=== PATIENT | female | born 1955 | race African-American/Black ===

== ENCOUNTER → 2016-06-11 | Outpatient (CLI) | payer MEDICARE, OTHER ==
[2016-01-03 18:36] VITALS: BP 111/74
[~2016-06-11] MED LIST: ACET500T68 PO; AMLO5TAB2 PO; DICL1PAT4 TP; METF500T4 PO; PENTAZOCINE; aspirin PO; benicar PO; gabapentin PO; lidoderm patch; metoprolol; simvastatin PO; talwin; tizanidine PO
[2016-06-11 15:38] LABS: BASO # 0.1 x10^3/uL (0.0-0.2); BASO % 1 % (0-3); EOS % 3 % (0-3); HEMATOCRIT 41.1 % (36.0-47.0); HEMOGLOBIN 13.8 g/dL (12.0-15.5); LYMPH # 3.1 x10^3/uL (1.0-4.8); LYMPH % 40 % (24-48); MEAN CORPUSCULAR HEMOGLOBIN 30 pg (25-35); MEAN CORPUSCULAR HGB CONC 33 g/dL (31-37); MEAN CORPUSCULAR VOLUME 90 fL (79-100); MONO % 7 % (0-9); NEUT % 50 % (31-73); PLATELET COUNT 225 x10^3/uL (140-400); RED BLOOD COUNT 4.59 x10^6/uL (3.50-5.40); RED CELL DISTRIBUTION WIDTH 14.2 % (11.5-14.5); WHITE BLOOD COUNT 7.8 x10^3/uL (4.0-11.0)
[2016-06-11 15:52] LABS: ALBUMIN 3.9 g/dL (3.4-5.0); ALBUMIN/GLOBULIN RATIO 1.1 (1.0-1.7); CALCIUM 9.3 mg/dL (8.5-10.1); CREATININE 0.8 mg/dL (0.6-1.0); GFR 88.5; POTASSIUM 3.8 mmol/L (3.5-5.1); TOTAL BILIRUBIN 0.4 mg/dL (0.2-1.0); TOTAL PROTEIN 7.6 g/dL (6.4-8.2)
--- NOTE | 2016-06-11 16:04 | EKG ---
[facility] [address] [place] [address] Test Date: 2016-06-11 Test Time: 16:09:56 Pat Name: NORMAN DUBOSE Department: Room: Gender: F Residential Mental Health Worker: : 1955 Requested By: DIAZ GONZALES Order Number: [id number] Reading MD: Mg Vazquez Measurements Intervals [place] Rate: 66 P: 43 IA: 130 QRS: 37 QRSD: 70 T: 28 QT: 390 QTc: 411 Interpretive Statements SINUS RHYTHM NORMAL ECG RI6.01 Compared to ECG 07/03/2013 05:43:52 No significant changes Electronically Signed On 06-14-2016 11:50:03 FREELANCE COPYWRITER by Mg Vazquez
--- NOTE | 2016-06-11 16:48 | RAD ---
Chest, 2 views, 06/11/2016: History: Preop evaluation for cervical fusion Comparison is made to a study from 07/02/2013. The heart size and pulmonary vascularity are normal. There is mild tortuosity of the aorta. No pulmonary infiltrates are seen. There is no evidence of pleural fluid. Minimal spurring is present in the spine. IMPRESSION: No acute cardiopulmonary abnormality is detected.
== END | disposition home or self-care (01) ==
LOC: SURGPAT 14:16
PROVIDERS: ATTEND Neurological Surgery
DX: M48.02 Spinal stenosis, cervical region (principal); M54.12 Radiculopathy, cervical region
CPT/HCPCS: 36415; 71020; 80053; 85027; 87641; 93005

== ENCOUNTER 2016-06-20 07:07 | Observation (INO) | payer MEDICARE ==
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
[2016-06-20] VITALS (11 sets, daily range): BP systolic 96–114; BP diastolic 60–77
[~2016-06-20] VITALS: Ht 160 cm; Wt 80.0 kg
[~2016-06-20 07:07] MED LIST changes: +CEFAZOLIN 2GM PREMIX 50 ML IV PRN; +FENTANYL PF 100 MCG/2 ML VIAL. IV PRN; +IV RINGERS,LACTATED 1000ML 1,000 ML IV SCH; +LIDOCAINE 1% 1 ML SYRINGE. ID PRN; +ONDANSETRON PF 4 MG/2 ML VIAL. IV PRN; +PROCHLORPERAZINE 10 MG/2 ML VIAL. IV PRN
[2016-06-20] MEDS ORDERED: GELATIN SPONGE SIZE 100. ONE (07:27)
[2016-06-20] MEDS ORDERED: BUPIVAC MPF-EPI 0.5%-1:200000 30 ML VIAL. ONE (07:27)
[2016-06-20] MEDS ORDERED: THROMBIN 20,000 UNIT SPRAY.SYRN KIT TP ONE (07:27)
[2016-06-20] MEDS: MORPHINE SULFATE 4 MG/ML DISP.SYRIN. IV PRN ×2 (07:56→15:56)
[2016-06-20] MEDS ORDERED: MORPHINE SULFATE 2 MG/ML DISP.SYRIN. ONE (07:57)
[2016-06-20] MEDS ORDERED: FENTANYL PF 100 MCG/2 ML VIAL. IV PRN (08:00)
[2016-06-20] MEDS ORDERED: MORPHINE SULFATE 4 MG/ML DISP.SYRIN. IV ONE (08:00)
[2016-06-20] MEDS ORDERED: MEPERIDINE PF 25 MG/ML VIAL. IV PRN (08:00)
[2016-06-20] MEDS ORDERED: DIPHENHYDRAMINE 50 MG/ML VIAL IV PRN ×2 (08:00→12:45)
[2016-06-20] MEDS ORDERED: PROCHLORPERAZINE 10 MG/2 ML VIAL. IV PRN (08:00)
[2016-06-20] MEDS ORDERED: MIDAZOLAM HCL 2 MG/2 ML VIAL. ONE (08:21)
[2016-06-20] MEDS ORDERED: GLYCOPYRROLATE 1 MG/5 ML VIAL. ONE (08:21)
[2016-06-20] MEDS ORDERED: REMIFENTANIL 2 MG VIAL. IV ONE (08:21)
[2016-06-20] MEDS ORDERED: ROCURONIUM 50 MG/5 ML VIAL. ONE (08:22)
[2016-06-20] MEDS ORDERED: DESFLURANE > 120 MINUTES IH ONE (08:22)
[2016-06-20] MEDS ORDERED: DEXAMETHASONE SOD PHOS 20 MG/5 ML VIAL. ONE (08:22)
[2016-06-20] MEDS ORDERED: PROPOFOL 20 ML IV ONE (08:22)
[2016-06-20] MEDS ORDERED: ONDANSETRON PF 4 MG/2 ML VIAL. ONE (08:22)
[2016-06-20] MEDS ORDERED: LIDOCAINE 2% 100 MG/5 ML DISP.SYRIN. ONE (08:22)
[2016-06-20] MEDS ORDERED: PHENYLEPHRINE 10 MG/ML VIAL. ONE (08:25)
[2016-06-20] MEDS ORDERED: PHENYLEPHRINE in 0.9% NACL PF 1 MG/10 ML DISP.SYRIN. IV ONE (08:35)
[2016-06-20] MEDS: BACITRACIN 50,000 UNIT in IV NORMAL SALINE 1000ML BAG 1,000 ML IRR ONE ×2 (09:14→09:37)
[2016-06-20] MEDS ORDERED: PROPOFOL 50 ML IV ONE ×2 (10:14)
[2016-06-20] MEDS ORDERED: REMIFENTANIL 1 MG VIAL. IV ONE (11:25)
[2016-06-20] MEDS ORDERED: FENTANYL PF 100 MCG/2 ML VIAL. ONE (11:27)
[2016-06-20] MEDS: FENTANYL PF 100 MCG/2 ML VIAL. IV PRN ×8 (12:20→22:33)
[2016-06-20] MEDS: POTASSIUM CL 20MEQ-0.45% NACL 1,000 ML IV SCH (12:42)
[2016-06-20] MEDS ORDERED: CALCIUM CARBONATE 500 MG TAB.CHEW PO PRN (12:45)
[2016-06-20] MEDS ORDERED: 0.9 % SODIUM CHLORIDE 10 ML DISP.SYRIN. IV PRN (12:45)
[2016-06-20] MEDS ORDERED: DIPHENHYDRAMINE HCL 25 MG CAPSULE PO PRN (12:45)
[2016-06-20] MEDS ORDERED: ONDANSETRON PF 4 MG/2 ML VIAL. IV PRN (12:45)
[2016-06-20] MEDS ORDERED: MAG HYDROX/ALUMINUM HYDROX/SMC 30 ML ORAL.SUSP PO PRN (12:45)
[2016-06-20] MEDS ORDERED: ACETAMINOPHEN 325 MG TABLET. PO PRN (12:45)
[2016-06-20] MEDS ORDERED: MAGNESIUM HYDROXIDE 2,400 MG/30 ML ORAL.SUSP. PO PRN (12:45)
[2016-06-20] MEDS ORDERED: ACETAMINOPHEN INTRAVENOUS 100 ML IV ONE ×3 (12:58→13:15)
[2016-06-20] MEDS ORDERED: DEXTROSE 50% 25 GM / 50ML DISP.SYRIN. IV PRN (13:00)
[2016-06-20] MEDS: PENTAZOCINE PO SCH ×2 (13:00→16:33)
[2016-06-20] MEDS: HYDROMORPHONE 2 MG/ML VIAL. IV PRN ×2 (13:13→13:25)
[2016-06-20] MEDS: tiZANidine 4 MG TABLET. PO SCH ×2 (15:34→20:52)
[2016-06-20] MEDS: GABAPENTIN 400 MG CAPSULE. PO SCH ×2 (15:34→20:52)
[2016-06-20] MEDS ORDERED: METO50TA2 PO (15:35)
[2016-06-20] MEDS: CEFAZOLIN SODIUM 1 GM in IV NORMAL SALINE 50ML 50 ML IV SCH ×2 (16:02→21:41)
[2016-06-20] MEDS ORDERED: PENT1TAB PO (18:17)
[2016-06-20] MEDS: METFORMIN 500 MG TABLET. PO SCH (18:25)
[2016-06-20] MEDS: DOCUSATE SODIUM 100 MG CAPSULE PO SCH (20:51)
[2016-06-20] MEDS: METOPROLOL TART IMMED RELEASE 50 MG TABLET PO SCH (20:51)
[2016-06-20] MEDS: SIMVASTATIN 20 MG TABLET PO SCH (20:52)
[2016-06-20] MEDS: TALWIN NX PO PRN (20:53)
[2016-06-21] MEDS: FENTANYL PF 100 MCG/2 ML VIAL. IV PRN ×7 (01:53→22:42)
[2016-06-21 02:00] VITALS: BP 108/69
[2016-06-21] MEDS: POTASSIUM CL 20MEQ-0.45% NACL 1,000 ML IV SCH (02:02)
[2016-06-21] MEDS: CEFAZOLIN SODIUM 1 GM in IV NORMAL SALINE 50ML 50 ML IV SCH (03:12)
[2016-06-21] MEDS ORDERED: OXYCODONE/APAP 5/325 TABLET. PO PRN (05:00)
[2016-06-21] MEDS ORDERED: TRAMADOL 50 MG TABLET. PO PRN (05:00)
[2016-06-21] MEDS: TRAMADOL 50 MG TABLET. PO PRN (05:19)
[2016-06-21 05:50] VITALS: BP 107/74
[2016-06-21] MEDS: DOCUSATE SODIUM 100 MG CAPSULE PO SCH ×2 (08:18→20:37)
[2016-06-21] MEDS: tiZANidine 4 MG TABLET. PO SCH (08:18)
[2016-06-21] MEDS: GABAPENTIN 400 MG CAPSULE. PO SCH ×3 (08:19→20:36)
[2016-06-21] MEDS: ASPIRIN ENTERIC COATED 325 MG TABLET.DR. PO SCH (08:20)
[2016-06-21] MEDS: METFORMIN 500 MG TABLET. PO SCH ×3 (08:20→17:16)
[2016-06-21] MEDS: TALWIN NX PO PRN ×2 (08:22→17:17)
[2016-06-21] MEDS: METOPROLOL TART IMMED RELEASE 50 MG TABLET PO SCH ×2 (09:00→20:36)
[2016-06-21] MEDS: AMLODIPINE BESYLATE 5 MG TABLET PO SCH (09:00)
[2016-06-21] MEDS: LOSARTAN POTASSIUM 50 MG TABLET. PO SCH (09:00)
[2016-06-21] MEDS ORDERED: DIAZEPAM 5 MG TABLET PO PRN (11:00)
[2016-06-21 11:07] VITALS: BP 105/66
[2016-06-21] MEDS ORDERED: DICLOFENAC EPOLAMINE 1.3% PATCH 5PATCH PACKET. TD SCH ×2 (12:00→21:00)
--- NOTE | 2016-06-21 12:12 | PDOC ---
PROGRESS NOTES Subjective Subjective POD #1 s/p ACDF Right arm pain much better, still some numbness in right hand but it is intermittent now c/o significant pain in neck and shoulders Objective Objective Vital Signs Date Time Temp Pulse Resp B/P Pulse Ox O2 Delivery O2 Flow Rate FiO2 06/21/16 11:07 97.8 67 16 105/66 95 Room Air 97.8 06/21/16 08:00 2.0 Intake and Output 06/21/16 07:00 Intake Total 3281 ml Output Total 725 ml Balance 2556 ml Intake Oral 1285 ml IV Total 1996 ml Output Urine Total 700 ml Estimated Blood Loss 25 ml # Voids 4 Physical Exam General: Alert, Cooperative MUSCULOSKELETAL: Other ([place]) Psych/Mental Status: Mental status NL Skin: Other (dressing dry and intact, soft) Assessment Assessment Problems Medical Problems: (1) Cervical spinal stenosis Status: Acute Plan Plan of Care encouraged increased activity as tolerated consult Dr. Scruggs for rehab eval increase pain medication Comment Review of Relevant I have reviewed the following items cyndee (where applicable) has been applied. Labs Laboratory Tests Test 06/20/16 12:18 06/20/16 17:52 06/20/16 20:32 06/21/16 06:25 Glucose (Fingerstick) 107mg/dL (70-99) 146mg/dL (70-99) 156mg/dL (70-99) 160mg/dL (70-99) Laboratory Tests Test 06/20/16 12:18 06/20/16 17:52 06/20/16 20:32 06/21/16 06:25 Glucose (Fingerstick) 107mg/dL (70-99) 146mg/dL (70-99) 156mg/dL (70-99) 160mg/dL (70-99) Medications Current Medications Bacitracin/Sodium Chloride (Iv Sodium Chloride 0.9% 1000ml Bag) 1,000 ml @ 1, 000 mls/hr 1X PERIOP ONCE IRR Last administered on 06/20/16t 09:37; Start at 08:00; Stop 06/20/16 at 08:59; Status DC Ondansetron HCl (Zofran) 4 mg PRN Q6HRS PRN IV Nausea; Start 06/20/16 at 07:00 ; Stop 06/20/16 at 18:00; Status DC Fentanyl Citrate (Fentanyl 2ml Vial) 25 mcg PRN Q5MIN PRN IV MILD PAIN; Start 06/20/16 at 07:00; Stop 06/20/16 at 18:00; Status DC Fentanyl Citrate 50 mcg 50 mcg PRN Q5MIN PRN IV MODERATE PAIN Last administered on 06/20/16 12:55; Start 06/20/16 at 07:00; Stop 06/20/16 at 18:00 ; Status DC Lactated Ringer's (Iv Lactated Ringers) 1,000 ml @ 30 mls/hr Q24H IV Last administered on 06/20/16 07:00; Start 06/20/16 at 07:00; Stop 06/20/16 at 18:59 ; Status DC Lidocaine HCl 2 ml 1X PRN PRN ID IV START; Start 06/20/16 at 07:00; Stop at 18:00; Status DC Prochlorperazine Edisylate 5 mg 5 mg PACU PRN PRN IV NAUSEA; Start 06/20/16 at 07:00; Stop 06/20/16 at 18:00; Status DC Cefazolin Sodium/ Dextrose (Ancef 2gm Premix) 50 ml @ 100 mls/hr 1X PREOP PRN IV PRIOR TO PROCEDURE Last administered on 06/20/16 09:20; Start 06/20/16 at 06 :00; Stop 06/20/16 at 18:00; Status DC Bupivacaine HCl/ Epinephrine Bitart (Sensorcain-Mpf Epi 0.5%-1:[id number]) 30 ml STK -MED ONCE .ROUTE Last administered on 06/20/16 09:37; Start 06/20/16 at 07:27 ; Stop 06/20/16 at 07:28; Status DC Gelatin (Gelfoam Size 100) 1 each STK-MED ONCE .ROUTE Last administered on 09:37; Start 06/20/16 at 07:27; Stop 06/20/16 at 07:28; Status DC Thrombin 20,000 unit STK-MED ONCE TP Last administered on 06/20/16 09:37; Start 06/20/16 at 07:27; Stop 06/20/16 at 07:28; Status DC Fentanyl Citrate (Fentanyl 2ml Vial) 50 mcg PRN Q5MIN PRN IV Acute Pain; Start 06/20/16 at 08:00; Stop 06/21/16 at 05:09; Status DC Morphine Sulfate 4 mg PRN Q10MIN PRN IV Moderate Pain Last administered on 06/20 07:56; Start 06/20/16 at 08:00; Stop 06/21/16 at 05:09; Status DC Hydromorphone HCl (Dilaudid) 0.4 mg PRN Q10MIN PRN IV Moderate to severe pain Last administered on 06/20/16 13:25; Start 06/20/16 at 08:00; Stop 06/21/16 at 05:07; Status DC Meperidine HCl (Demerol) 12.5 mg PRN Q5MIN PRN IV SHIVERING; Start 06/20/16 at 08:00; Stop 06/21/16 at 05:09; Status DC Prochlorperazine Edisylate (Compazine) 5 mg PRN Q6HRS PRN IV Nausea/Vomiting, 1st Choice; Start 06/20/16 at 08:00; Stop 06/21/16 at 07:59; Status DC Diphenhydramine HCl (Benadryl) 12.5 mg PRN Q2HR PRN IV ITCHING; Start 06/20/16 at 08:00; Stop 06/21/16 at 07:59; Status DC Morphine Sulfate 4 mg 1X ONCE IV ; Start 06/20/16 at 08:00; Stop 06/21/16 at 05 :09; Status DC Morphine Sulfate 2 mg STK-MED ONCE .ROUTE ; Start 06/20/16 at 07:57; Stop at 07:58; Status DC Midazolam HCl (Versed) 2 mg STK-MED ONCE .ROUTE ; Start 06/20/16 at 08:21; Stop 06/20/16 at 08:22; Status DC Remifentanil HCl (Ultiva) 2 mg STK-MED ONCE IV ; Start 06/20/16 at 08:21; Stop 06/20/16 at 08:22; Status DC Glycopyrrolate (Robinul) 1 mg STK-MED ONCE .ROUTE ; Start 06/20/16 at 08:21; Stop 06/20/16 at 08:22; Status DC Desflurane (Suprane) 90 ml STK-MED ONCE IH ; Start 06/20/16 at 08:22; Stop 06/20 at 08:23; Status DC Ondansetron HCl (Zofran) 4 mg STK-MED ONCE .ROUTE ; Start 06/20/16 at 08:22; Stop 06/20/16 at 08:23; Status DC Lidocaine HCl 100 mg 100 mg STK-MED ONCE .ROUTE ; Start 06/20/16 at 08:22; Stop 06/20/16 at 08:23; Status DC Propofol (Diprivan) 20 ml @ As Directed STK-MED ONCE IV ; Start 06/20/16 at 08: 22; Stop 06/20/16 at 08:23; Status DC Dexamethasone Sodium Phosphate (Decadron) 20 mg STK-MED ONCE .ROUTE ; Start at 08:22; Stop 06/20/16 at 08:23; Status DC Rocuronium [place] (Zemuron) 50 mg STK-MED ONCE .ROUTE ; Start 06/20/16 at 08:22 ; Stop 06/20/16 at 08:23; Status DC Phenylephrine HCl (Yogesh-Synephrine Inj) 10 mg STK-MED ONCE .ROUTE ; Start at 08:25; Stop 06/20/16 at 08:26; Status DC Phenylephrine HCl 1 mg 1 mg STK-MED ONCE IV ; Start 06/20/16 at 08:35; Stop at 08:36; Status DC Propofol 50 ml @ As Directed STK-MED ONCE IV ; Start 06/20/16 at 10:14; Stop at 10:15; Status DC Propofol (Diprivan) 50 ml @ As Directed STK-MED ONCE IV ; Start 06/20/16 at 10: 14; Stop 06/20/16 at 10:15; Status DC Remifentanil HCl (Ultiva) 1 mg STK-MED ONCE IV ; Start 06/20/16 at 11:25; Stop 06/20/16 at 11:26; Status DC Fentanyl Citrate (Fentanyl 2ml Vial) 100 mcg STK-MED ONCE .ROUTE ; Start at 11:27; Stop 06/20/16 at 11:28; Status DC Amlodipine Besylate (Norvasc) 5 mg DAILY PO ; Start 06/21/16 at 09:00 Metformin HCl (Glucophage) 500 mg QEVNG PO Last administered on 06/20/16 18:25 ; Start 06/20/16 at 18:00 Aspirin (Ecotrin) 325 mg DAILYWBKFT PO Last administered on 06/21/16 08:20; Start 06/21/16 at 08:00 Losartan Potassium (Cozaar) 100 mg DAILY PO ; Start 06/21/16 at 09:00 Gabapentin (Neurontin) 800 mg TID PO Last administered on 06/21/16 08:19; Start 06/20/16 at 14:00 Non-Formulary Medication 1 tab QID PO ; Start 06/20/16 at 13:00; Stop 06/20/16 at 18:18; Status DC Simvastatin (Zocor) 20 mg HS PO Last administered on 06/20/16 20:52; Start at 21:00 Tizanidine HCl (Zanaflex) 4 mg TID PO Last administered on 06/21/16 08:18; Start 06/20/16 at 14:00; Stop 06/21/16 at 10:52; Status DC Fentanyl Citrate (Fentanyl 2ml Vial) 25 mcg PRN Q1HR PRN IV PAIN Last administered on 06/20/16 14:52; Start 06/20/16 at 12:45 Fentanyl Citrate (Fentanyl 2ml Vial) 50 mcg PRN Q1HR PRN IV PAIN Last administered on 06/21/16 09:50; Start 06/20/16 at 12:45 Acetaminophen (Tylenol) 650 mg PRN Q6HRS PRN PO MILD PAIN / TEMP Last administered on 06/21/16 02:02; Start 06/20/16 at 12:45 Al Hydrox/Mg Hydrox/Simethicone (Mylanta Plus Xs) 30 ml PRN Q3HRS PRN PO HEARTBURN / GAS; Start 06/20/16 at 12:45 Calcium Carbonate/ Glycine (Tums) 500 mg PRN Q3HRS PRN PO INDIGESTION; Start at 12:45 Diphenhydramine HCl (Benadryl) 25 mg PRN Q6HRS PRN PO ITCHING; Start 06/20/16 at 12:45 Diphenhydramine HCl (Benadryl) 25 mg PRN Q6HRS PRN IV ITCHING; Start 06/20/16 at 12:45 Sodium Chloride 3 ml 3 ml QSHIFT PRN IV AFTER MEDS AND BLOOD DRAWS; Start 06/20 at 12:45 Potassium Chloride/Sodium Chloride (KCl 20 Meq-0.45% Nacl) 1,000 ml @ 75 mls/ hr [id number] IV ; Start 06/20/16 at 12:42; Stop 06/21/16 at 04:51; Status DC Docusate Sodium (Colace) 100 mg BID PO Last administered on 06/21/16 08:18; Start 06/20/16 at 21:00 Magnesium Hydroxide (Milk Of Magnesia) 2,400 mg PRN Q12HR PRN PO CONSTIPATION; Start 06/20/16 at 12:45 Ondansetron HCl 4 mg 4 mg PRN Q6HRS PRN IV NAUESA, 1ST CHOICE; Start 06/20/16 at 12:45 Cefazolin Sodium/ Sodium Chloride (Ancef/Iv Sodium Chloride 0.9% 50ml) 50 ml @ 100 mls/hr Q6H IV Last administered on 06/21/16 03:12; Start 06/20/16 at 15:30 ; Stop 06/21/16 at 03:59; Status DC Dextrose 12.5 gm 12.5 gm PRN Q15MIN PRN IV SEE COMMENTS; Start 06/20/16 at 13: 00 Acetaminophen 100 ml @ As Directed STK-MED ONCE IV ; Start 06/20/16 at 12:58; Stop 06/20/16 at 12:59; Status DC Acetaminophen 100 ml @ 400 mls/hr 1X ONCE IV ; Start 06/20/16 at 13:15; Stop 06/20/16 at 13:15; Status DC Acetaminophen (Ofirmev) 100 ml @ 0 mls/hr 1X ONCE IV Last administered on 06/20 13:02; Start 06/20/16 at 13:02; Stop 06/20/16 at 13:08; Status DC Metoprolol Tartrate (Lopressor) 50 mg BID PO ; Start 06/20/16 at 21:00 Non-Formulary Medication 1 tab PRN QID PRN PO PAIN Last administered on 08:22; Start 06/20/16 at 18:17 Tramadol HCl (Ultram) 50 mg PRN Q6HRS PRN PO PAIN Last administered on 05:19; Start 06/21/16 at 05:00 Tramadol HCl (Ultram) 100 mg PRN Q6HRS PRN PO PAIN; Start 06/21/16 at 05:00 Oxycodone/ Acetaminophen (Percocet 5/325) 1 tab PRN Q6HRS PRN PO PAIN Last administered on 06/21/16 09:50; Start 06/21/16 at 05:00 Diazepam (Valium) 5 mg PRN TID PRN PO MUSCLE SPASMS; Start 06/21/16 at 11:00 Diclofenac Epolamine (Flector) 1 patch BID TD ; Start 06/21/16 at 12:00; Status UNV Active Scripts Active Acetaminophen 500 Mg Tablet 1 Tab PO Q6HRS Reported Pentazocine-Naloxone Tablet (Pentazocine Hcl/Naloxone Hcl) 1 Each Tablet 1 Tab PO QID PRN Metoprolol Tartrate 50 Mg Tablet 50 Mg PO BID Amlodipine Besylate 5 Mg Tablet 5 Mg PO DAILY Metformin Hcl 500 Mg Tablet 500 Mg PO QEVNG Flector (Diclofenac Epolamine) 1 Each Patch.td12 1 Patch TP BID [benicar] 40 Mg PO DAILY08 [metoprolol] [tizanidine] 4 Mg PO TID [lidoderm patch] [gabapentin] 800 Mg PO TID [aspirin] 325 Mg PO DAILY [simvastatin] 20 Mg PO DAILY Vitals/I & O Vital Sign - Last 24 Hours 06/20/16 06/20/16 06/20/16 06/20/16 12:01 12:01 12:16 12:20 Temp 98.0 98.0 Pulse 80 78 Resp 16 18 20 B/P 102/63 105/69 Pulse Ox 99 100 100 O2 Delivery Simple Mask Mask Simple Mask Simple Mask O2 Flow Rate 10 10 10 10.0 06/20/16 06/20/16 06/20/16 06/20/16 12:27 12:31 12:40 12:40 Pulse 18 Resp 20 18 18 B/P 112/56 Pulse Ox 100 94 100 O2 Delivery Room Air Nasal Cannula Nasal Cannula Nasal Cannula O2 Flow Rate 10.0 2 2.0 2 06/20/16 06/20/16 06/20/16 06/20/16 12:46 12:55 13:01 13:13 Pulse 76 74 Resp 18 18 18 18 B/P 101/65 103/63 Pulse Ox 94 96 97 97 O2 Delivery Nasal Cannula Nasal Cannula Nasal Cannula Nasal Cannula O2 Flow Rate 2 2.0 2 2.0 06/20/16 06/20/16 06/20/16 06/20/16 13:16 13:25 13:31 14:30 Temp 97.1 98.5 97.1 98.5 Pulse 74 61 70 Resp 18 18 18 16 B/P 96/69 98/70 114/77 Pulse Ox 97 97 98 94 O2 Delivery Nasal Cannula Nasal Cannula Nasal Cannula Nasal Cannula O2 Flow Rate 2 2.0 2 2.0 06/20/16 06/20/16 06/20/16 06/20/16 14:30 14:45 14:52 15:00 Pulse 65 70 B/P 103/64 104/77 Pulse Ox 98 O2 Delivery Nasal Cannula Nasal Cannula Room Air O2 Flow Rate 2.0 2.0 06/20/16 06/20/16 06/20/16 06/20/16 15:15 16:15 16:34 16:45 Pulse 59 62 60 B/P 113/69 106/72 96/62 Pulse Ox 95 97 O2 Delivery Nasal Cannula Nasal Cannula Nasal Cannula O2 Flow Rate 2.0 2.0 2.0 06/20/16 06/20/16 06/20/16 06/20/16 17:15 18:15 18:57 19:15 Temp 98.3 98.3 Pulse 62 59 67 Resp 16 B/P 106/72 103/60 113/76 Pulse Ox 96 94 96 O2 Delivery Nasal Cannula Room Air Nasal Cannula Nasal Cannula O2 Flow Rate 2.0 2.0 2.0 06/20/16 06/20/16 06/20/16 06/20/16 19:55 20:15 20:51 22:33 Temp 98.3 98.3 Pulse 59 61 Resp 16 18 B/P 106/75 100/66 Pulse Ox 98 98 O2 Delivery Room Air Nasal Cannula Room Air O2 Flow Rate 2.0 06/20/16 06/21/16 06/21/16 06/21/16 22:36 01:53 02:00 02:28 Temp 97.9 97.9 97.9 97.9 Pulse 64 66 Resp 16 18 16 18 B/P 102/67 108/69 Pulse Ox 98 98 97 97 O2 Delivery Nasal Cannula Room Air Nasal Cannula O2 Flow Rate 2.0 2.0 2.0 06/21/16 06/21/16 06/21/16 06/21/16 05:19 05:50 06:22 06:22 Temp 97.9 97.9 Pulse 74 Resp 18 16 16 B/P 107/74 Pulse Ox 97 93 93 O2 Delivery Room Air Room Air Room Air Nasal Cannula O2 Flow Rate 2.0 2.0 2.0 06/21/16 06/21/16 06/21/16 06/21/16 06:52 08:00 08:22 09:00 Pulse 67 B/P 105/66 O2 Delivery Room Air Room Air Room Air O2 Flow Rate 2.0 06/21/16 06/21/16 06/21/16 06/21/16 09:00 09:00 09:50 09:50 Pulse 67 67 B/P 105/66 105/66 O2 Delivery Room Air Room Air 06/21/16 11:07 Temp 97.8 97.8 Pulse 67 Resp 16 B/P 105/66 Pulse Ox 95 O2 Delivery Room Air Intake and Output 06/20/16 06/20/16 06/21/16 15:00 23:00 07:00 Intake Total 1150 ml 470 ml 1661 ml Output Total 25 ml 700 ml Balance 1125 ml -230 ml 1661 ml ALDEN TRIMBLE APRN Jun 21, 2016 12:11
[2016-06-21] MEDS: OXYCODONE/APAP 5/325 TABLET. PO PRN ×2 (13:49→20:39)
[2016-06-21 15:00] VITALS: BP 116/75
--- NOTE | 2016-06-21 15:42 | PATHOLOGY ---
PATHOLOGY REPORT * * * * * * * * FINAL DIAGNOSIS: Segments of cartilaginous tissue and minute segments of bone, cervical disc: - Degenerative changes. (JPM:ismael; d/t: 06/21/2016) REPORT ELECTRONICALLY SIGNED BY: Naeem Membreno M.D. DATE/TIME: 06/21/2016 15:41 * * * * * * * * GROSS PATHOLOGY: Received in formalin labeled "Norman Schmitz and cervical disc," are several segments of blood-tinged, white-judge, rubbery and gritty tissue admixed with possible bone measuring 1.8 x 1.0 x 0.3 cm in aggregate dimensions. The tissue is submitted entirely in cassette A1, following decalcification. (TTL:ismael; 06/20/2016) INITIAL CPT CODE(S): A; 71418, 09962 Professional services [place] [address] Technical services performed by [facility] at [address] [place] [address], [facility] [address], [place] [address]. SPECIMEN(S) RECEIVED: A.Cervical disc CLINICAL HISTORY: Cervical stenosis, radiculopathy PATIENT: NORAMN SCHMITZ /AGE: 12 1955 (Age: 61) PATIENT #: [id number] ALT CASE #: SPECIMEN COLLECTION DATE: 06/20/2016 SPECIMEN RECEIVED DATE: 06/20/2016 [facility] - [address] [place] [address] - PHONE: [phone] * * * END OF REPORT * * *
[2016-06-21 19:20] VITALS: BP 127/81
[2016-06-21] MEDS: SIMVASTATIN 20 MG TABLET PO SCH (20:36)
[2016-06-21] MEDS: DICLOFENAC EPOLAMINE 1.3% PATCH 5PATCH PACKET. TD SCH (20:42)
[2016-06-21 23:15] VITALS: BP 138/86
[2016-06-22] VITALS (7 sets, daily range): BP systolic 116–144; BP diastolic 39–91
--- NOTE | 2016-06-22 00:16 | OP ---
DATE OF SURGERY: 06/20/2016 PREOPERATIVE DIAGNOSES: Cervical spinal stenosis with foraminal narrowing and radiculopathy, right C4-C5, C5-C6. POSTOPERATIVE DIAGNOSES: Cervical spinal stenosis with foraminal narrowing and radiculopathy, right C4-C5, C5-C6. OPERATION PERFORMED: An anterior cervical microdiskectomy C4-C5, C5-C6. Anterior cervical interbody fusion C4-C5, C5-C6 with interbody fusion cage packed with allograft and autograft bone. Anterior cervical plate, C4, C5, C6. The operation was done with EMG monitoring, SSEP monitoring, Nims monitoring, motor evoked potentials, fluoroscopy, microscopic dissection. OPERATOR MAINTAINER: SAE Roca assisted with the surgery. She assisted with the exposure of the diskectomies, interbody fusion, plate closure. OPERATIVE INDICATIONS: The patient is a pleasant 61-year-old who is having significant difficulty with right-sided neck pain and pain which radiates into her right upper extremity. She rates her pain as a 9/10. She has been in physical therapy, which has not helped her. She said she feels unsteady on occasion and the above-mentioned findings were on imaging studies. She additionally has neural foraminal narrowing at C3-C4 and as well on the right at C6-C7 with these levels that she did not have significant central canal stenosis. My feeling was that the most prudent course would be to operate severe levels and if she needs further surgery, operate from behind and address any other problems. She understood my rationale for surgery. She understood my concerns about her condition. I discussed this with her in detail as well. I discussed this with her family. She wished to go ahead with surgery. DESCRIPTION OF PROCEDURE: Following general endotracheal anesthesia, the patient was positioned supine on the operating room table. The anterior cervical region was prepped and draped in the standard fashion. LENARD hose and AV impulse boots were applied for DVT prophylaxis. The microscope was draped. Fluoroscopy was draped and brought into field. Monitoring was established. Ancef 2 g was given less than 1 hour prior to the initiation of surgery. Using fluoroscopic guidance, incision was made from the midline around to the right side and the skin crease over the C6 vertebral body. I dissected down through the skin and subcutaneous tissue. I dissected around the medial aspect of the sternocleidomastoid and carotid artery sheath down the anterior cervical vertebral bodies and I did determine the C4-C5 and C5-C6 interspace in the midline. I did use fluoroscopic images to confirm my position, I placed the Trion anterior cervical retractors with the blades on each side over the longus colli muscle at C5-C6 and 14 mm pins in C5 and C6. I brought in the microscope and the remainder of surgery done with the microscope using microscopic technique. I incised the anterior annulus. I performed a diskectomy with pituitary rongeurs. There was considerable hypertrophic bone and arthritic degenerative changes and I worked through and I was able to pass a 5 mm trial, which I used to gently does distract and ____ posteriorly to remove the bone spurs and then used the 1 and 2 mm micro Kerrison's to trim the annulus, which was partially calcified and worked laterally bilaterally. The foramina there was subligamentous disk and I peeled this back and removed this material. I opened the ligament bilaterally and as I worked, I was able to get an excellent decompression. I assured myself that the neural foramina were open. I scraped away cartilaginous endplate and prepared the endplates carefully. I obtained perfect hemostasis and then placed in an interbody fusion cage of 6 mm, which was packed with allograft and autograft bone. The autograft bone, I obtained from shaving the bone spurs anteriorly and saving this bone and using it to augment the allograft. I then after this was in position, I removed the pin from C6 and covered that opening with bone wax and placed a pin into C4, removing the retractors superiorly and I performed the identical operation at C4-C5. Again, there was considerable hypertrophic partly calcified ligament and bone, and I removed this material. I worked diligently and obtained excellent hemostasis. Again, ____ the anterior spurring and used this bone to mix with allograft bone to augment and after the decompression was completed and I assured myself that the foramina were open and I placed the interbody fusion cage, which was packed with allograft and autograft bone. Once the cage was in perfect position, then I placed a 40 mm anterior plate and used 13 mm screws placed in the superior and inferior screws first and then placing the remaining screws, which were then locked. I removed the retractor, I explored carefully. Hemostasis was perfect. I irrigated copiously. I then closed the wound in layers with absorbable sutures, closing the platysma as a separate layer. The skin was closed with a 4-0 subcuticular stitch. Operation went very well and the patient awakened uneventfully, taken to recovery room in excellent condition with normal strength in her extremities. I was quite pleased with the surgery. DIAZ GONZALES MD DR: LORA/kalpesh JOB#: [id number] / [id number]
[2016-06-22] MEDS: OXYCODONE/APAP 5/325 TABLET. PO PRN ×2 (03:23→09:44)
[2016-06-22] MEDS: TALWIN NX PO PRN ×4 (04:32→19:38)
[2016-06-22] MEDS: FENTANYL PF 100 MCG/2 ML VIAL. IV PRN ×3 (06:34→21:01)
[2016-06-22] MEDS: GABAPENTIN 400 MG CAPSULE. PO SCH ×3 (08:40→19:36)
[2016-06-22] MEDS: ASPIRIN ENTERIC COATED 325 MG TABLET.DR. PO SCH (08:41)
[2016-06-22] MEDS: DOCUSATE SODIUM 100 MG CAPSULE PO SCH ×2 (08:41→19:35)
[2016-06-22] MEDS: AMLODIPINE BESYLATE 5 MG TABLET PO SCH (08:41)
[2016-06-22] MEDS: METOPROLOL TART IMMED RELEASE 50 MG TABLET PO SCH ×2 (08:42→19:36)
[2016-06-22] MEDS: DICLOFENAC EPOLAMINE 1.3% PATCH 5PATCH PACKET. TD SCH ×2 (08:43→19:38)
[2016-06-22] MEDS: LOSARTAN POTASSIUM 50 MG TABLET. PO SCH (08:48)
--- NOTE | 2016-06-22 11:48 | PDOC ---
PROGRESS NOTES Subjective Subjective She admits continued neck and low back pain. Objective Objective Vital Signs Date Time Temp Pulse Resp B/P Pulse Ox O2 Delivery O2 Flow Rate FiO2 06/22/16 11:30 97.9 66 20 132/81 92 Room Air 97.9 06/22/16 08:15 2.0 Intake and Output 06/22/16 07:00 Intake Total 1480 ml Output Total 100 ml Balance 1380 ml Intake Oral 1480 ml Output Urine Total 100 ml # Voids 7 Physical Exam Physical Exam She is sitting up in chair and does not seem to be in any acute distress. Assessment Assessment Problems Medical Problems: (1) Cervical spinal stenosis Status: Acute Plan Plan of Care To get her up as tolerated and to rehab or SNF when arrangements are completed. Comment Review of Relevant I have reviewed the following items cyndee (where applicable) has been applied. Labs Laboratory Tests Test 06/20/16 12:18 06/20/16 17:52 06/20/16 20:32 06/21/16 06:25 Glucose (Fingerstick) 107mg/dL (70-99) 146mg/dL (70-99) 156mg/dL (70-99) 160mg/dL (70-99) Test 06/21/16 11:38 06/21/16 16:48 06/21/16 21:17 06/22/16 07:49 Glucose (Fingerstick) 179mg/dL (70-99) 149mg/dL (70-99) 144mg/dL (70-99) 98mg/dL (70-99) Laboratory Tests Test 06/21/16 16:48 06/21/16 21:17 06/22/16 07:49 Glucose (Fingerstick) 149mg/dL (70-99) 144mg/dL (70-99) 98mg/dL (70-99) Medications Current Medications Bacitracin/Sodium Chloride (Iv Sodium Chloride 0.9% 1000ml Bag) 1,000 ml @ 1, 000 mls/hr 1X PERIOP ONCE IRR Last administered on 06/20/16t 09:37; Start at 08:00; Stop 06/20/16 at 08:59; Status DC Ondansetron HCl (Zofran) 4 mg PRN Q6HRS PRN IV Nausea; Start 06/20/16 at 07:00 ; Stop 06/20/16 at 18:00; Status DC Fentanyl Citrate (Fentanyl 2ml Vial) 25 mcg PRN Q5MIN PRN IV MILD PAIN; Start 06/20/16 at 07:00; Stop 06/20/16 at 18:00; Status DC Fentanyl Citrate 50 mcg 50 mcg PRN Q5MIN PRN IV MODERATE PAIN Last administered on 06/20/16 12:55; Start 06/20/16 at 07:00; Stop 06/20/16 at 18:00 ; Status DC Lactated Ringer's (Iv Lactated Ringers) 1,000 ml @ 30 mls/hr Q24H IV Last administered on 06/20/16 07:00; Start 06/20/16 at 07:00; Stop 06/20/16 at 18:59 ; Status DC Lidocaine HCl 2 ml 1X PRN PRN ID IV START; Start 06/20/16 at 07:00; Stop at 18:00; Status DC Prochlorperazine Edisylate 5 mg 5 mg PACU PRN PRN IV NAUSEA; Start 06/20/16 at 07:00; Stop 06/20/16 at 18:00; Status DC Cefazolin Sodium/ Dextrose (Ancef 2gm Premix) 50 ml @ 100 mls/hr 1X PREOP PRN IV PRIOR TO PROCEDURE Last administered on 06/20/16 09:20; Start 06/20/16 at 06 :00; Stop 06/20/16 at 18:00; Status DC Bupivacaine HCl/ Epinephrine Bitart (Sensorcain-Mpf Epi 0.5%-[id number]) 30 ml STK -MED ONCE .ROUTE Last administered on 06/20/16 09:37; Start 06/20/16 at 07:27 ; Stop 06/20/16 at 07:28; Status DC Gelatin (Gelfoam Size 100) 1 each STK-MED ONCE .ROUTE Last administered on 09:37; Start 06/20/16 at 07:27; Stop 06/20/16 at 07:28; Status DC Thrombin 20,000 unit STK-MED ONCE TP Last administered on 06/20/16 09:37; Start 06/20/16 at 07:27; Stop 06/20/16 at 07:28; Status DC Fentanyl Citrate (Fentanyl 2ml Vial) 50 mcg PRN Q5MIN PRN IV Acute Pain; Start 06/20/16 at 08:00; Stop 06/21/16 at 05:09; Status DC Morphine Sulfate 4 mg PRN Q10MIN PRN IV Moderate Pain Last administered on 06/20 07:56; Start 06/20/16 at 08:00; Stop 06/21/16 at 05:09; Status DC Hydromorphone HCl (Dilaudid) 0.4 mg PRN Q10MIN PRN IV Moderate to severe pain Last administered on 06/20/16 13:25; Start 06/20/16 at 08:00; Stop 06/21/16 at 05:07; Status DC Meperidine HCl (Demerol) 12.5 mg PRN Q5MIN PRN IV SHIVERING; Start 06/20/16 at 08:00; Stop 06/21/16 at 05:09; Status DC Prochlorperazine Edisylate (Compazine) 5 mg PRN Q6HRS PRN IV Nausea/Vomiting, 1st Choice; Start 06/20/16 at 08:00; Stop 06/21/16 at 07:59; Status DC Diphenhydramine HCl (Benadryl) 12.5 mg PRN Q2HR PRN IV ITCHING; Start 06/20/16 at 08:00; Stop 06/21/16 at 07:59; Status DC Morphine Sulfate 4 mg 1X ONCE IV ; Start 06/20/16 at 08:00; Stop 06/21/16 at 05 :09; Status DC Morphine Sulfate 2 mg STK-MED ONCE .ROUTE ; Start 06/20/16 at 07:57; Stop at 07:58; Status DC Midazolam HCl (Versed) 2 mg STK-MED ONCE .ROUTE ; Start 06/20/16 at 08:21; Stop 06/20/16 at 08:22; Status DC Remifentanil HCl (Ultiva) 2 mg STK-MED ONCE IV ; Start 06/20/16 at 08:21; Stop 06/20/16 at 08:22; Status DC Glycopyrrolate (Robinul) 1 mg STK-MED ONCE .ROUTE ; Start 06/20/16 at 08:21; Stop 06/20/16 at 08:22; Status DC Desflurane (Suprane) 90 ml STK-MED ONCE IH ; Start 06/20/16 at 08:22; Stop 06/20 at 08:23; Status DC Ondansetron HCl (Zofran) 4 mg STK-MED ONCE .ROUTE ; Start 06/20/16 at 08:22; Stop 06/20/16 at 08:23; Status DC Lidocaine HCl 100 mg 100 mg STK-MED ONCE .ROUTE ; Start 06/20/16 at 08:22; Stop 06/20/16 at 08:23; Status DC Propofol (Diprivan) 20 ml @ As Directed STK-MED ONCE IV ; Start 06/20/16 at 08: 22; Stop 06/20/16 at 08:23; Status DC Dexamethasone Sodium Phosphate (Decadron) 20 mg STK-MED ONCE .ROUTE ; Start at 08:22; Stop 06/20/16 at 08:23; Status DC Rocuronium [place] (Zemuron) 50 mg STK-MED ONCE .ROUTE ; Start 06/20/16 at 08:22 ; Stop 06/20/16 at 08:23; Status DC Phenylephrine HCl (Yogesh-Synephrine Inj) 10 mg STK-MED ONCE .ROUTE ; Start at 08:25; Stop 06/20/16 at 08:26; Status DC Phenylephrine HCl 1 mg 1 mg STK-MED ONCE IV ; Start 06/20/16 at 08:35; Stop at 08:36; Status DC Propofol 50 ml @ As Directed STK-MED ONCE IV ; Start 06/20/16 at 10:14; Stop at 10:15; Status DC Propofol (Diprivan) 50 ml @ As Directed STK-MED ONCE IV ; Start 06/20/16 at 10: 14; Stop 06/20/16 at 10:15; Status DC Remifentanil HCl (Ultiva) 1 mg STK-MED ONCE IV ; Start 06/20/16 at 11:25; Stop 06/20/16 at 11:26; Status DC Fentanyl Citrate (Fentanyl 2ml Vial) 100 mcg STK-MED ONCE .ROUTE ; Start at 11:27; Stop 06/20/16 at 11:28; Status DC Amlodipine Besylate (Norvasc) 5 mg DAILY PO Last administered on 06/22/16 08: 41; Start 06/21/16 at 09:00 Metformin HCl (Glucophage) 500 mg QEVNG PO Last administered on 06/21/16 17:16 ; Start 06/20/16 at 18:00 Aspirin (Ecotrin) 325 mg DAILYWBKFT PO Last administered on 06/22/16 08:41; Start 06/21/16 at 08:00 Losartan Potassium (Cozaar) 100 mg DAILY PO ; Start 06/21/16 at 09:00 Gabapentin (Neurontin) 800 mg TID PO Last administered on 06/22/16 08:40; Start 06/20/16 at 14:00 Non-Formulary Medication 1 tab QID PO ; Start 06/20/16 at 13:00; Stop 06/20/16 at 18:18; Status DC Simvastatin (Zocor) 20 mg HS PO Last administered on 06/21/16 20:36; Start at 21:00 Tizanidine HCl (Zanaflex) 4 mg TID PO Last administered on 06/21/16 08:18; Start 06/20/16 at 14:00; Stop 06/21/16 at 10:52; Status DC Fentanyl Citrate (Fentanyl 2ml Vial) 25 mcg PRN Q1HR PRN IV PAIN Last administered on 06/20/16 14:52; Start 06/20/16 at 12:45 Fentanyl Citrate (Fentanyl 2ml Vial) 50 mcg PRN Q1HR PRN IV PAIN Last administered on 06/22/16 06:34; Start 06/20/16 at 12:45 Acetaminophen (Tylenol) 650 mg PRN Q6HRS PRN PO MILD PAIN / TEMP Last administered on 06/21/16 02:02; Start 06/20/16 at 12:45 Al Hydrox/Mg Hydrox/Simethicone (Mylanta Plus Xs) 30 ml PRN Q3HRS PRN PO HEARTBURN / GAS Last administered on 06/21/16 20:36; Start 06/20/16 at 12:45 Calcium Carbonate/ Glycine (Tums) 500 mg PRN Q3HRS PRN PO INDIGESTION; Start at 12:45 Diphenhydramine HCl (Benadryl) 25 mg PRN Q6HRS PRN PO ITCHING; Start 06/20/16 at 12:45 Diphenhydramine HCl (Benadryl) 25 mg PRN Q6HRS PRN IV ITCHING; Start 06/20/16 at 12:45 Sodium Chloride 3 ml 3 ml QSHIFT PRN IV AFTER MEDS AND BLOOD DRAWS; Start 06/20 at 12:45 Potassium Chloride/Sodium Chloride (KCl 20 Meq-0.45% Nacl) 1,000 ml @ 75 mls/ hr [id number] IV ; Start 06/20/16 at 12:42; Stop 06/21/16 at 04:51; Status DC Docusate Sodium (Colace) 100 mg BID PO Last administered on 06/22/16 08:41; Start 06/20/16 at 21:00 Magnesium Hydroxide (Milk Of Magnesia) 2,400 mg PRN Q12HR PRN PO CONSTIPATION; Start 06/20/16 at 12:45 Ondansetron HCl 4 mg 4 mg PRN Q6HRS PRN IV NAUESA, 1ST CHOICE; Start 06/20/16 at 12:45 Cefazolin Sodium/ Sodium Chloride (Ancef/Iv Sodium Chloride 0.9% 50ml) 50 ml @ 100 mls/hr Q6H IV Last administered on 06/21/16 03:12; Start 06/20/16 at 15:30 ; Stop 06/21/16 at 03:59; Status DC Dextrose 12.5 gm 12.5 gm PRN Q15MIN PRN IV SEE COMMENTS; Start 06/20/16 at 13: 00 Acetaminophen 100 ml @ As Directed STK-MED ONCE IV ; Start 06/20/16 at 12:58; Stop 06/20/16 at 12:59; Status DC Acetaminophen 100 ml @ 400 mls/hr 1X ONCE IV ; Start 06/20/16 at 13:15; Stop 06/20/16 at 13:15; Status DC Acetaminophen (Ofirmev) 100 ml @ 0 mls/hr 1X ONCE IV Last administered on 06/20 13:02; Start 06/20/16 at 13:02; Stop 06/20/16 at 13:08; Status DC Metoprolol Tartrate (Lopressor) 50 mg BID PO Last administered on 06/22/16 08: 42; Start 06/20/16 at 21:00 Non-Formulary Medication 1 tab PRN QID PRN PO PAIN Last administered on 08:42; Start 06/20/16 at 18:17 Tramadol HCl (Ultram) 50 mg PRN Q6HRS PRN PO PAIN Last administered on 05:19; Start 06/21/16 at 05:00 Tramadol HCl (Ultram) 100 mg PRN Q6HRS PRN PO PAIN Last administered on 12:04; Start 06/21/16 at 05:00 Oxycodone/ Acetaminophen (Percocet 5/325) 1 tab PRN Q6HRS PRN PO PAIN Last administered on 06/21/16 09:50; Start 06/21/16 at 05:00 Diazepam (Valium) 5 mg PRN TID PRN PO MUSCLE SPASMS Last administered on 11:54; Start 06/21/16 at 11:00 Diclofenac Epolamine (Flector) 1 patch BID TD ; Start 06/21/16 at 12:00; Stop at 12:00; Status DC Diclofenac Epolamine (Flector) 1 patch BID TD ; Start 06/21/16 at 21:00; Stop at 21:00; Status DC Oxycodone/ Acetaminophen (Percocet 5/325) 2 tab PRN Q6HRS PRN PO PAIN Last administered on 06/22/16 09:44; Start 06/21/16 at 12:15 Diclofenac Epolamine (Flector) 2 patch BID TD Last administered on 06/22/16 08 :43; Start 06/21/16 at 21:00 Active Scripts Active Acetaminophen 500 Mg Tablet 1 Tab PO Q6HRS Reported Pentazocine-Naloxone Tablet (Pentazocine Hcl/Naloxone Hcl) 1 Each Tablet 1 Tab PO QID PRN Metoprolol Tartrate 50 Mg Tablet 50 Mg PO BID Amlodipine Besylate 5 Mg Tablet 5 Mg PO DAILY Metformin Hcl 500 Mg Tablet 500 Mg PO QEVNG Flector (Diclofenac Epolamine) 1 Each Patch.td12 1 Patch TP BID [benicar] 40 Mg PO DAILY08 [metoprolol] [tizanidine] 4 Mg PO TID [lidoderm patch] [gabapentin] 800 Mg PO TID [aspirin] 325 Mg PO DAILY [simvastatin] 20 Mg PO DAILY Vitals/I & O Vital Sign - Last 24 Hours 06/21/16 06/21/16 06/21/16 06/21/16 12:04 13:04 13:49 13:50 O2 Delivery Room Air Room Air Room Air Room Air 06/21/16 06/21/16 06/21/16 06/21/16 15:00 17:17 19:20 20:36 Temp 98.6 98.1 98.6 98.1 Pulse 70 81 81 Resp 16 18 B/P 116/75 127/81 127/81 Pulse Ox 93 93 O2 Delivery Room Air Room Air Room Air 06/21/16 06/21/16 06/21/16 06/21/16 20:39 20:55 22:42 23:15 Resp 20 20 Pulse Ox 93 93 93 O2 Delivery Room Air Room Air Room Air 06/21/16 06/22/16 06/22/16 06/22/16 23:15 03:23 03:47 04:35 Temp 97.5 98.3 97.5 98.3 Pulse 65 68 Resp 18 20 18 20 B/P 138/86 130/91 Pulse Ox 91 93 91 91 O2 Delivery Room Air Room Air Room Air O2 Flow Rate 2.0 06/22/16 06/22/16 06/22/16 06/22/16 06:34 07:00 07:15 08:00 Temp 97.9 97.9 Pulse 66 Resp 20 20 B/P 132/81 Pulse Ox 91 92 O2 Delivery Room Air Room Air Room Air Room Air O2 Flow Rate 2.0 06/22/16 06/22/16 06/22/16 06/22/16 08:15 08:41 08:42 09:44 Temp 97.9 97.9 Pulse 66 68 66 Resp 20 B/P 120/82 130/91 120/82 Pulse Ox 97 O2 Delivery Nasal Cannula Room Air O2 Flow Rate 2.0 06/22/16 06/22/16 10:44 11:30 Temp 97.9 97.9 Pulse 66 Resp 20 B/P 132/81 Pulse Ox 92 O2 Delivery Room Air Room Air Intake and Output 06/21/16 06/21/16 06/22/16 15:00 23:00 07:00 Intake Total 1120 ml 360 ml Output Total 100 ml Balance 1020 ml 360 ml YOAV CAMPBELL MD Jun 22, 2016 11:48
--- NOTE | 2016-06-22 11:54 | PDOC ---
PROGRESS NOTES Subjective Subjective up in chair still c/o neck and shoulder pain right arm pain/ numbness significantly improved Objective Objective Vital Signs Date Time Temp Pulse Resp B/P Pulse Ox O2 Delivery O2 Flow Rate FiO2 06/22/16 11:30 97.9 66 20 132/81 92 Room Air 97.9 06/22/16 08:15 2.0 Intake and Output 06/22/16 07:00 Intake Total 1480 ml Output Total 100 ml Balance 1380 ml Intake Oral 1480 ml Output Urine Total 100 ml # Voids 7 Physical Exam General: Alert, Oriented X3, Cooperative HEENT: Other (soft collar on, voice clear) Neuro: Normal speech, Strength at 5/5 X4 ext Skin: Other (dressing C,D,I, Flat, soft) Assessment Assessment Problems Medical Problems: (1) Cervical spinal stenosis Status: Acute Plan Plan of Care increase Percocet encouraged increased activity as tolerated PT D/W Dr. Scruggs Comment Review of Relevant I have reviewed the following items cyndee (where applicable) has been applied. Labs Laboratory Tests Test 06/20/16 12:18 06/20/16 17:52 06/20/16 20:32 06/21/16 06:25 Glucose (Fingerstick) 107mg/dL (70-99) 146mg/dL (70-99) 156mg/dL (70-99) 160mg/dL (70-99) Test 06/21/16 11:38 06/21/16 16:48 06/21/16 21:17 06/22/16 07:49 Glucose (Fingerstick) 179mg/dL (70-99) 149mg/dL (70-99) 144mg/dL (70-99) 98mg/dL (70-99) Laboratory Tests Test 06/21/16 16:48 06/21/16 21:17 06/22/16 07:49 Glucose (Fingerstick) 149mg/dL (70-99) 144mg/dL (70-99) 98mg/dL (70-99) Medications Current Medications Bacitracin/Sodium Chloride (Iv Sodium Chloride 0.9% 1000ml Bag) 1,000 ml @ 1, 000 mls/hr 1X PERIOP ONCE IRR Last administered on 06/20/16t 09:37; Start at 08:00; Stop 06/20/16 at 08:59; Status DC Ondansetron HCl (Zofran) 4 mg PRN Q6HRS PRN IV Nausea; Start 06/20/16 at 07:00 ; Stop 06/20/16 at 18:00; Status DC Fentanyl Citrate (Fentanyl 2ml Vial) 25 mcg PRN Q5MIN PRN IV MILD PAIN; Start 06/20/16 at 07:00; Stop 06/20/16 at 18:00; Status DC Fentanyl Citrate 50 mcg 50 mcg PRN Q5MIN PRN IV MODERATE PAIN Last administered on 06/20/16 12:55; Start 06/20/16 at 07:00; Stop 06/20/16 at 18:00 ; Status DC Lactated Ringer's (Iv Lactated Ringers) 1,000 ml @ 30 mls/hr Q24H IV Last administered on 06/20/16 07:00; Start 06/20/16 at 07:00; Stop 06/20/16 at 18:59 ; Status DC Lidocaine HCl 2 ml 1X PRN PRN ID IV START; Start 06/20/16 at 07:00; Stop at 18:00; Status DC Prochlorperazine Edisylate 5 mg 5 mg PACU PRN PRN IV NAUSEA; Start 06/20/16 at 07:00; Stop 06/20/16 at 18:00; Status DC Cefazolin Sodium/ Dextrose (Ancef 2gm Premix) 50 ml @ 100 mls/hr 1X PREOP PRN IV PRIOR TO PROCEDURE Last administered on 06/20/16 09:20; Start 06/20/16 at 06 :00; Stop 06/20/16 at 18:00; Status DC Bupivacaine HCl/ Epinephrine Bitart (Sensorcain-Mpf Epi 0.5%-[id number]) 30 ml STK -MED ONCE .ROUTE Last administered on 06/20/16 09:37; Start 06/20/16 at 07:27 ; Stop 06/20/16 at 07:28; Status DC Gelatin (Gelfoam Size 100) 1 each STK-MED ONCE .ROUTE Last administered on 09:37; Start 06/20/16 at 07:27; Stop 06/20/16 at 07:28; Status DC Thrombin 20,000 unit STK-MED ONCE TP Last administered on 06/20/16 09:37; Start 06/20/16 at 07:27; Stop 06/20/16 at 07:28; Status DC Fentanyl Citrate (Fentanyl 2ml Vial) 50 mcg PRN Q5MIN PRN IV Acute Pain; Start 06/20/16 at 08:00; Stop 06/21/16 at 05:09; Status DC Morphine Sulfate 4 mg PRN Q10MIN PRN IV Moderate Pain Last administered on 06/20 07:56; Start 06/20/16 at 08:00; Stop 06/21/16 at 05:09; Status DC Hydromorphone HCl (Dilaudid) 0.4 mg PRN Q10MIN PRN IV Moderate to severe pain Last administered on 06/20/16 13:25; Start 06/20/16 at 08:00; Stop 06/21/16 at 05:07; Status DC Meperidine HCl (Demerol) 12.5 mg PRN Q5MIN PRN IV SHIVERING; Start 06/20/16 at 08:00; Stop 06/21/16 at 05:09; Status DC Prochlorperazine Edisylate (Compazine) 5 mg PRN Q6HRS PRN IV Nausea/Vomiting, 1st Choice; Start 06/20/16 at 08:00; Stop 06/21/16 at 07:59; Status DC Diphenhydramine HCl (Benadryl) 12.5 mg PRN Q2HR PRN IV ITCHING; Start 06/20/16 at 08:00; Stop 06/21/16 at 07:59; Status DC Morphine Sulfate 4 mg 1X ONCE IV ; Start 06/20/16 at 08:00; Stop 06/21/16 at 05 :09; Status DC Morphine Sulfate 2 mg STK-MED ONCE .ROUTE ; Start 06/20/16 at 07:57; Stop at 07:58; Status DC Midazolam HCl (Versed) 2 mg STK-MED ONCE .ROUTE ; Start 06/20/16 at 08:21; Stop 06/20/16 at 08:22; Status DC Remifentanil HCl (Ultiva) 2 mg STK-MED ONCE IV ; Start 06/20/16 at 08:21; Stop 06/20/16 at 08:22; Status DC Glycopyrrolate (Robinul) 1 mg STK-MED ONCE .ROUTE ; Start 06/20/16 at 08:21; Stop 06/20/16 at 08:22; Status DC Desflurane (Suprane) 90 ml STK-MED ONCE IH ; Start 06/20/16 at 08:22; Stop 06/20 at 08:23; Status DC Ondansetron HCl (Zofran) 4 mg STK-MED ONCE .ROUTE ; Start 06/20/16 at 08:22; Stop 06/20/16 at 08:23; Status DC Lidocaine HCl 100 mg 100 mg STK-MED ONCE .ROUTE ; Start 06/20/16 at 08:22; Stop 06/20/16 at 08:23; Status DC Propofol (Diprivan) 20 ml @ As Directed STK-MED ONCE IV ; Start 06/20/16 at 08: 22; Stop 06/20/16 at 08:23; Status DC Dexamethasone Sodium Phosphate (Decadron) 20 mg STK-MED ONCE .ROUTE ; Start at 08:22; Stop 06/20/16 at 08:23; Status DC Rocuronium [place] (Zemuron) 50 mg STK-MED ONCE .ROUTE ; Start 06/20/16 at 08:22 ; Stop 06/20/16 at 08:23; Status DC Phenylephrine HCl (Yogesh-Synephrine Inj) 10 mg STK-MED ONCE .ROUTE ; Start at 08:25; Stop 06/20/16 at 08:26; Status DC Phenylephrine HCl 1 mg 1 mg STK-MED ONCE IV ; Start 06/20/16 at 08:35; Stop at 08:36; Status DC Propofol 50 ml @ As Directed STK-MED ONCE IV ; Start 06/20/16 at 10:14; Stop at 10:15; Status DC Propofol (Diprivan) 50 ml @ As Directed STK-MED ONCE IV ; Start 06/20/16 at 10: 14; Stop 06/20/16 at 10:15; Status DC Remifentanil HCl (Ultiva) 1 mg STK-MED ONCE IV ; Start 06/20/16 at 11:25; Stop 06/20/16 at 11:26; Status DC Fentanyl Citrate (Fentanyl 2ml Vial) 100 mcg STK-MED ONCE .ROUTE ; Start at 11:27; Stop 06/20/16 at 11:28; Status DC Amlodipine Besylate (Norvasc) 5 mg DAILY PO Last administered on 06/22/16 08: 41; Start 06/21/16 at 09:00 Metformin HCl (Glucophage) 500 mg QEVNG PO Last administered on 06/21/16 17:16 ; Start 06/20/16 at 18:00 Aspirin (Ecotrin) 325 mg DAILYWBKFT PO Last administered on 06/22/16 08:41; Start 06/21/16 at 08:00 Losartan Potassium (Cozaar) 100 mg DAILY PO ; Start 06/21/16 at 09:00 Gabapentin (Neurontin) 800 mg TID PO Last administered on 06/22/16 08:40; Start 06/20/16 at 14:00 Non-Formulary Medication 1 tab QID PO ; Start 06/20/16 at 13:00; Stop 06/20/16 at 18:18; Status DC Simvastatin (Zocor) 20 mg HS PO Last administered on 06/21/16 20:36; Start at 21:00 Tizanidine HCl (Zanaflex) 4 mg TID PO Last administered on 06/21/16 08:18; Start 06/20/16 at 14:00; Stop 06/21/16 at 10:52; Status DC Fentanyl Citrate (Fentanyl 2ml Vial) 25 mcg PRN Q1HR PRN IV PAIN Last administered on 06/20/16 14:52; Start 06/20/16 at 12:45 Fentanyl Citrate (Fentanyl 2ml Vial) 50 mcg PRN Q1HR PRN IV PAIN Last administered on 06/22/16 06:34; Start 06/20/16 at 12:45 Acetaminophen (Tylenol) 650 mg PRN Q6HRS PRN PO MILD PAIN / TEMP Last administered on 06/21/16 02:02; Start 06/20/16 at 12:45 Al Hydrox/Mg Hydrox/Simethicone (Mylanta Plus Xs) 30 ml PRN Q3HRS PRN PO HEARTBURN / GAS Last administered on 06/21/16 20:36; Start 06/20/16 at 12:45 Calcium Carbonate/ Glycine (Tums) 500 mg PRN Q3HRS PRN PO INDIGESTION; Start at 12:45 Diphenhydramine HCl (Benadryl) 25 mg PRN Q6HRS PRN PO ITCHING; Start 06/20/16 at 12:45 Diphenhydramine HCl (Benadryl) 25 mg PRN Q6HRS PRN IV ITCHING; Start 06/20/16 at 12:45 Sodium Chloride 3 ml 3 ml QSHIFT PRN IV AFTER MEDS AND BLOOD DRAWS; Start 06/20 at 12:45 Potassium Chloride/Sodium Chloride (KCl 20 Meq-0.45% Nacl) 1,000 ml @ 75 mls/ hr [id number] IV ; Start 06/20/16 at 12:42; Stop 06/21/16 at 04:51; Status DC Docusate Sodium (Colace) 100 mg BID PO Last administered on 06/22/16 08:41; Start 06/20/16 at 21:00 Magnesium Hydroxide (Milk Of Magnesia) 2,400 mg PRN Q12HR PRN PO CONSTIPATION; Start 06/20/16 at 12:45 Ondansetron HCl 4 mg 4 mg PRN Q6HRS PRN IV NAUESA, 1ST CHOICE; Start 06/20/16 at 12:45 Cefazolin Sodium/ Sodium Chloride (Ancef/Iv Sodium Chloride 0.9% 50ml) 50 ml @ 100 mls/hr Q6H IV Last administered on 06/21/16 03:12; Start 06/20/16 at 15:30 ; Stop 06/21/16 at 03:59; Status DC Dextrose 12.5 gm 12.5 gm PRN Q15MIN PRN IV SEE COMMENTS; Start 06/20/16 at 13: 00 Acetaminophen 100 ml @ As Directed STK-MED ONCE IV ; Start 06/20/16 at 12:58; Stop 06/20/16 at 12:59; Status DC Acetaminophen 100 ml @ 400 mls/hr 1X ONCE IV ; Start 06/20/16 at 13:15; Stop 06/20/16 at 13:15; Status DC Acetaminophen (Ofirmev) 100 ml @ 0 mls/hr 1X ONCE IV Last administered on 06/20 13:02; Start 06/20/16 at 13:02; Stop 06/20/16 at 13:08; Status DC Metoprolol Tartrate (Lopressor) 50 mg BID PO Last administered on 06/22/16 08: 42; Start 06/20/16 at 21:00 Non-Formulary Medication 1 tab PRN QID PRN PO PAIN Last administered on 08:42; Start 06/20/16 at 18:17 Tramadol HCl (Ultram) 50 mg PRN Q6HRS PRN PO PAIN Last administered on 05:19; Start 06/21/16 at 05:00 Tramadol HCl (Ultram) 100 mg PRN Q6HRS PRN PO PAIN Last administered on 12:04; Start 06/21/16 at 05:00 Oxycodone/ Acetaminophen (Percocet 5/325) 1 tab PRN Q6HRS PRN PO PAIN Last administered on 06/21/16 09:50; Start 06/21/16 at 05:00 Diazepam (Valium) 5 mg PRN TID PRN PO MUSCLE SPASMS Last administered on 11:54; Start 06/21/16 at 11:00 Diclofenac Epolamine (Flector) 1 patch BID TD ; Start 06/21/16 at 12:00; Stop at 12:00; Status DC Diclofenac Epolamine (Flector) 1 patch BID TD ; Start 06/21/16 at 21:00; Stop at 21:00; Status DC Oxycodone/ Acetaminophen (Percocet 5/325) 2 tab PRN Q6HRS PRN PO PAIN Last administered on 06/22/16 09:44; Start 06/21/16 at 12:15 Diclofenac Epolamine (Flector) 2 patch BID TD Last administered on 06/22/16 08 :43; Start 06/21/16 at 21:00 Bisacodyl (Dulcolax Supp) 10 mg PRN DAILY PRN ND CONSTIPATION; Start 06/22/16 at 12:00; Status UNV Bisacodyl (Dulcolax Tab) 10 mg DAILY PO ; Start 06/23/16 at 09:00; Status UNV Active Scripts Active Acetaminophen 500 Mg Tablet 1 Tab PO Q6HRS Reported Pentazocine-Naloxone Tablet (Pentazocine Hcl/Naloxone Hcl) 1 Each Tablet 1 Tab PO QID PRN Metoprolol Tartrate 50 Mg Tablet 50 Mg PO BID Amlodipine Besylate 5 Mg Tablet 5 Mg PO DAILY Metformin Hcl 500 Mg Tablet 500 Mg PO QEVNG Flector (Diclofenac Epolamine) 1 Each Patch.td12 1 Patch TP BID [benicar] 40 Mg PO DAILY08 [metoprolol] [tizanidine] 4 Mg PO TID [lidoderm patch] [gabapentin] 800 Mg PO TID [aspirin] 325 Mg PO DAILY [simvastatin] 20 Mg PO DAILY Vitals/I & O Vital Sign - Last 24 Hours 06/21/16 06/21/16 06/21/16 06/21/16 12:04 13:04 13:49 13:50 O2 Delivery Room Air Room Air Room Air Room Air 06/21/16 06/21/16 06/21/16 06/21/16 15:00 17:17 19:20 20:36 Temp 98.6 98.1 98.6 98.1 Pulse 70 81 81 Resp 16 18 B/P 116/75 127/81 127/81 Pulse Ox 93 93 O2 Delivery Room Air Room Air Room Air 06/21/16 06/21/16 06/21/16 06/21/16 20:39 20:55 22:42 23:15 Resp 20 20 Pulse Ox 93 93 93 O2 Delivery Room Air Room Air Room Air 06/21/16 06/22/16 06/22/16 06/22/16 23:15 03:23 03:47 04:35 Temp 97.5 98.3 97.5 98.3 Pulse 65 68 Resp 18 20 18 20 B/P 138/86 130/91 Pulse Ox 91 93 91 91 O2 Delivery Room Air Room Air Room Air O2 Flow Rate 2.0 06/22/16 06/22/16 06/22/16 06/22/16 06:34 07:00 07:15 08:00 Temp 97.9 97.9 Pulse 66 Resp 20 20 B/P 132/81 Pulse Ox 91 92 O2 Delivery Room Air Room Air Room Air Room Air O2 Flow Rate 2.0 06/22/16 06/22/16 06/22/16 06/22/16 08:15 08:41 08:42 09:44 Temp 97.9 97.9 Pulse 66 68 66 Resp 20 B/P 120/82 130/91 120/82 Pulse Ox 97 O2 Delivery Nasal Cannula Room Air O2 Flow Rate 2.0 06/22/16 06/22/16 10:44 11:30 Temp 97.9 97.9 Pulse 66 Resp 20 B/P 132/81 Pulse Ox 92 O2 Delivery Room Air Room Air Intake and Output 06/21/16 06/21/16 06/22/16 15:00 23:00 07:00 Intake Total 1120 ml 360 ml Output Total 100 ml Balance 1020 ml 360 ml DIAZ GONZALES MD Jun 22, 2016 11:54
[2016-06-22] MEDS ORDERED: OXYCODONE/APAP 7.5/325 TABLET. PO PRN (12:00)
[2016-06-22] MEDS ORDERED: BISACODYL 10 MG SUPP.RECT PR PRN (12:00)
[2016-06-22] MEDS: BISACODYL 5 MG TABLET.DR. PO SCH (12:25)
[2016-06-22] MEDS: OXYCODONE/APAP 7.5/325 TABLET. PO PRN ×2 (14:49→19:37)
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
[2016-06-22] MEDS: METFORMIN 500 MG TABLET. PO SCH (17:35)
[2016-06-22] MEDS: SIMVASTATIN 20 MG TABLET PO SCH (19:35)
[2016-06-23 03:00] VITALS: BP 113/80
[2016-06-23] MEDS: OXYCODONE/APAP 7.5/325 TABLET. PO PRN ×2 (03:23→09:40)
[2016-06-23 07:00] VITALS: BP 138/85
[2016-06-23] MEDS: DICLOFENAC EPOLAMINE 1.3% PATCH 5PATCH PACKET. TD SCH (09:00)
[2016-06-23] MEDS: DOCUSATE SODIUM 100 MG CAPSULE PO SCH (09:39)
[2016-06-23] MEDS: GABAPENTIN 400 MG CAPSULE. PO SCH ×2 (09:39→15:19)
[2016-06-23] MEDS: METOPROLOL TART IMMED RELEASE 50 MG TABLET PO SCH (09:41)
[2016-06-23] MEDS: LOSARTAN POTASSIUM 50 MG TABLET. PO SCH (09:41)
[2016-06-23] MEDS: AMLODIPINE BESYLATE 5 MG TABLET PO SCH (09:42)
[2016-06-23] MEDS: BISACODYL 5 MG TABLET.DR. PO SCH (09:42)
[2016-06-23] MEDS: ASPIRIN ENTERIC COATED 325 MG TABLET.DR. PO SCH (09:42)
[2016-06-23] MEDS: TALWIN NX PO PRN ×2 (09:43→15:19)
[2016-06-23 11:00] VITALS: BP 138/77
[2016-06-23] MEDS: TRAMADOL 50 MG TABLET. PO PRN (12:31)
--- NOTE | 2016-06-23 15:36 | DISCH ---
DISCHARGE INSTRUCTIONS Condition on Discharge Condition on Discharge: Stable Activity After Discharge Activity Instructions for Disc: Activity as tolerated, Avoid exertion Bathing Instructions: Shower-keep dressing dry Lifting Instructions after Dis: No heavy lifting, No pulling or pushing, Do not lift >10 pounds Driving Instructions after Dis: No driving for 2 weeks Diet after Discharge Additional Diet Restrictions: resume home diet Wound Incision Care Wound/Incision Care: Ice to area for comfort Other wound/incision instructi: may remove dressing, may shower- no soaking Contacting the after DC Call your doctor for: Concerns you may have Follow-Up Follow up with: Dr. Gonzales in 2 weeks [phone] DIAZ GONZALES MD Jun 23, 2016 15:36
--- NOTE | 2016-06-23 23:41 | DS ---
DATE OF DISCHARGE: 06/23/2016 DATE OF SURGERY: 06/20/2016. DISCHARGE DIAGNOSES: Cervical spinal stenosis with foraminal narrowing and radiculopathy, right C4-C5 and C5-C6. OPERATION PERFORMED: Anterior cervical microdiscectomy C4-C5, C5-C6. Anterior cervical interbody fusion C4-C5, C5-C6 with interbody fusion cage. Anterior cervical plate C4, C5, C6. HISTORY OF PRESENT ILLNESS: The patient is a pleasant 61-year-old who was having difficulty with right-sided neck pain and pain which radiated to her right upper extremity. She had the above-mentioned findings on imaging studies. She failed to improve with conservative measures. I recommended anterior cervical discectomy and fusion at C4-C5 and C5-C6. She understood the surgery, the risks, the technique of the operation as well as the expected postoperative course. She wished to proceed. HOSPITAL COURSE: She was admitted to the floor postoperatively where she did well. She was able to be up ambulating in the room and in the halls. Physical therapy was initiated and instruction was given to her regarding her activities. Her pain is well controlled. She is in good condition to discharge home. DISCHARGE MEDICATIONS: She will resume her medications per the MRAD. DISCHARGE INSTRUCTIONS: She was instructed regarding incision care, activity restrictions and expectations for the next several weeks. She will follow up in our office in 2 weeks. She understands to call with any questions or concerns. DIAZ GONZALES MD DR: AUGUSTA/kalpesh JOB#: [id number] / [id number] VIRA
== END 2016-06-23 16:25 | disposition home or self-care (01) ==
LOC: SURG 07:07 → 4 SOUTHEST 12:42 → 4 NORTH 06-21 18:15
PROVIDERS: ADMIT Neurological Surgery; ATTEND Neurological Surgery
DX: M48.02 Spinal stenosis, cervical region (principal); M54.12 Radiculopathy, cervical region; E11.9 Type 2 diabetes mellitus without complications; I10 Essential (primary) hypertension; M25.70 Osteophyte, unspecified joint; F17.200 Nicotine dependence, unspecified, uncomplicated; Z86.73 Personal history of transient ischemic attack (TIA), and cerebral infarction without residual deficits; Z79.891 Long term (current) use of opiate analgesic
CPT/HCPCS: 20931; 20938; 22551; 22552; 22845; 22853; 76001; 82947; 88304; 88311; 96365; 96375; 96376; 97116; 97162; 97166; 99406; C1713; G0378; G0379; G8978; G8979; J0131; J0690; J0780; J1100; J1170; J2250; J2270; J2370; J2405; J2704; J3010; J3490; J7030; J7120

== ENCOUNTER → 2017-01-27 | Outpatient (CLI) | payer MEDICARE ==
[~2017-01-27] MED LIST changes: -CEFAZOLIN 2GM PREMIX 50 ML IV PRN; -DICL1PAT4 TP; -FENTANYL PF 100 MCG/2 ML VIAL. IV PRN; +FLECTOR1 EACH TP; -IV RINGERS,LACTATED 1000ML 1,000 ML IV SCH; -LIDOCAINE 1% 1 ML SYRINGE. ID PRN; +METO50TA2 PO; -ONDANSETRON PF 4 MG/2 ML VIAL. IV PRN; +PENT1TAB PO; -PROCHLORPERAZINE 10 MG/2 ML VIAL. IV PRN
[2017-01-27 13:40] LABS: CREATININE 0.8 mg/dL (0.6-1.0); GFR 88.5
[2017-01-27] MEDS: GADOBUTROL 7.5 MMOL/7.5 ML VIAL IV ONE (14:13)
--- NOTE | 2017-01-27 15:09 | RAD ---
MRI cervical spine with and without contrast January 27, 2017 INDICATION: History of cervical fusion with worsening right arm radiculopathy. COMPARISON: MRI cervical spine October 27, 2009 TECHNIQUE: Multiplanar, multisequence MRI of the cervical spine is performed before and after the administration of intravenous contrast. 7.5 mL gadolinium-based contrast was administered intravenously. FINDINGS: Postoperative changes from anterior cervical discectomy and fusion are identified from C4 through C6. There is straightening of the normal cervical lordosis. Craniocervical junction is normal in appearance. Vertebral artery flow voids are maintained. No prevertebral soft tissue swelling. Posterior fossa is normal. Sella and suprasellar cistern appear normal. The slight increased T2 signal hyperintensity at the C5 vertebral level, likely secondary to myelomalacia. Mild volume loss of the cord at this level is noted. C2-C3: This is normal in configuration. No significant facet arthropathy. No neuroforaminal or spinal canal stenosis. C3-C4: There is a posterior disc osteophyte complex. Mild facet arthropathy. Mild uncovertebral joint arthropathy. Moderate bilateral neural foraminal stenosis. Findings appear progressed since October 27, 2009. There is mild spinal canal stenosis. C4-C5: This level is fused. There is a posterior osteophyte resulting in moderate spinal canal stenosis. Mild to moderate bilateral neural foraminal stenosis. Mild facet arthropathy. C5-C6: This level is fused. There is moderate facet arthropathy with uncovertebral spurring. Mild spinal canal stenosis. Mild increased T2 signal at this level, likely secondary to myelomalacia. C6-C7: There is mild facet arthropathy. Moderate uncovertebral joint arthropathy. Moderate right and mild left neural foraminal stenosis. No spinal canal stenosis. C7-T1: Disc is normal in configuration. Mild facet arthropathy. No neural foraminal or spinal canal stenosis. No suspicious enhancement is identified. IMPRESSION: 1. Postoperative changes are identified from anterior cervical discectomy and fusion from C4 through C6. There is mild increased T2 signal involving the C5/C6 vertebral level suggestive of an area of myelomalacia. 2. Moderate transitional level degenerative changes with associated neural foraminal stenosis, as detailed above. Electronically signed by: Farzana Fowler MD (01/27/2017 3:05 PM) [facility]
== END | disposition home or self-care (01) ==
LOC: MRI 15:39
PROVIDERS: ATTEND Neurological Surgery
DX: M54.12 Radiculopathy, cervical region (principal); M48.02 Spinal stenosis, cervical region; Z98.1 Arthrodesis status
CPT/HCPCS: 36415; 72156; 82565; A9585

== ENCOUNTER → 2017-06-13 | Outpatient (CLI) | payer MEDICARE | END | disposition home or self-care (01) | LOC: PNCL 10:19 | DX: M25.511 Pain in right shoulder (principal); E11.9 Type 2 diabetes mellitus without complications; I10 Essential (primary) hypertension; V29.9XXD Motorcycle rider (driver) (passenger) injured in unspecified traffic accident, subsequent encounter | CPT/HCPCS: G0463 ==

== ENCOUNTER → 2017-06-27 | Outpatient (CLI) | payer MEDICARE ==
[~2017-06-27] MED LIST changes: -ACET500T68 PO; -AMLO5TAB2 PO; -FLECTOR1 EACH TP; +IOHEXOL 180 MG/ML 10 ML VIAL.; -METF500T4 PO; -METO50TA2 PO; -PENT1TAB PO; -PENTAZOCINE; -aspirin PO; -benicar PO; -gabapentin PO; -lidoderm patch; +methylPREDNISolone ACETATE 40 MG/ML VIAL.; +methylPREDNISolone ACETATE 80 MG/ML VIAL.; -metoprolol; -simvastatin PO; -talwin; -tizanidine PO
== END ==
LOC: PNCL 10:12
DX: M54.12 Radiculopathy, cervical region (principal); E78.00 Pure hypercholesterolemia, unspecified; I10 Essential (primary) hypertension; M19.90 Unspecified osteoarthritis, unspecified site; E11.9 Type 2 diabetes mellitus without complications; F32.9 Major depressive disorder, single episode, unspecified; F17.210 Nicotine dependence, cigarettes, uncomplicated; Z80.3 Family history of malignant neoplasm of breast; Z88.6 Allergy status to analgesic agent; Z88.8 Allergy status to other drugs, medicaments and biological substances
CPT/HCPCS: 62321; J1030; J1040; Q9965

== ENCOUNTER 2019-04-01 22:24 | Emergency (ER) | payer OTHER, MEDICARE ==
[~2019-04-01 22:24] MED LIST changes: +ACET500T68 PO; +ALA; +AMLO5TAB10 PO; +FLECTOR1 EACH TP; -IOHEXOL 180 MG/ML 10 ML VIAL.; +METF500T16 PO; +METO25TA4 PO; +METO50TA6 PO; +PENT1TAB PO; +PENTAZOCINE; +POLY17PO29 PO; +VIT D; +aspirin PO; +benicar PO; +compound cream; +gabapentin PO; +lidoderm patch; -methylPREDNISolone ACETATE 40 MG/ML VIAL.; -methylPREDNISolone ACETATE 80 MG/ML VIAL.; +metoprolol; +simvastatin PO; +talwin; +tizanidine PO
== END 2019-04-02 00:50 | disposition left against medical advice (07) ==
LOC: ER 22:24
DX: Z04.1 Encounter for examination and observation following transport accident (principal); Z53.21 Procedure and treatment not carried out due to patient leaving prior to being seen by health care provider

== ENCOUNTER → 2020-12-18 | Outpatient (CLI) | payer MEDICARE ==
[~2020-12-18] MED LIST changes: +AMLO-186 PO; -AMLO5TAB10 PO
--- NOTE | 2020-12-18 13:57 | RAD ---
MR#: [id number] Date of Study: 12/18/2020 Ordering Physician: PRUDENCE URIBE, Referring Physician: PRUDENCE URIBE, Tech: Alis Valdivia RDMS, STEPHANET, RTR APPROVED REPORT Patient Location: OUT-PATIENT Indications Uncontrolled HTN Renal Artery Doppler Right Renal Artery Left Renal Arter y Proximal 112.7/33.6 cm/secProximal Mid 97.3/33.6 cm/secMid 51.4/15.3 cm/sec Distal 138.2/46.4 cm/secDistal 81.4/31.0 cm/sec Renal/Aorta Ratio 1.77Renal/Aorta Ratio 1.04 Prox. Resistive Index 0.70Prox. Resistive Index Mid Resistive Index 0.65Mid Resistive Index 0.70 Distal Resistive Index 0.66Distal Resistive Index 0.62 Rt. Segmental A. 18.9/8.2 cm/secLt. Segmental A. 21.0/5.9 cm/sec Renal Measurements RightLeft Kidney [id number] cm 4.6 cmKidney Nfykmk46.1 cm 4.5 cm Right Additional FindingsLeft Additional Findings Aortic Doppler VelocityWaveform Mid. Aorta 77.9 cm/sec Findings Grayscale images of the bilateral kidneys are limited. Grossly no obvious evidence of abnormality. The right proximal, mid and distal renal arteries have normal velocities. Normal resistive indices a nd normal renal to aortic ratios. The left proximal renal artery is not well visualized due to bowel gas interference. Mid and distal renal artery velocities are within normal limits with normal resistive indices and renal to aortic ra tios. Critical Notification Critical Value: No <Conclusion> 1. No significant renal artery stenosis bilaterally. 2. Technically limited study. Signed by : Steven Parrish, Electronically Approved : 12/18/2020 13:57:03
--- NOTE | 2020-12-18 14:17 | CARD ---
MR#: [id number] Date of Study: 12/18/2020 Ordering Physician: PRUDENCE URIBE, Referring Physician: PRUDENCE URIBE, Tech: Alis Clarke, [facility] APPROVED REPORT EXAM: Two-dimensional and M-mode echocardiogram with Doppler and color Doppler. Other Information Quality : AverageHR: 73bpm INDICATION Hypertension/HCVD RISK FACTORS Hypertension Hyperlipidemia Diabetes Smoking 2D DIMENSIONS RVDd2.6 (2.9-3.5cm)Left Atrium(2D)2.5 (1.6-4.0cm) IVSd0.9 (0.7-1.1cm)Aortic Root(2D)3.0 (2.0-3.7cm) LVDd4.5 (3.9-5.9cm)LVOT Diameter2.1 (1.8-2.4cm) PWd0.9 (0.7-1.1cm)LVDs3.1 (2.5-4.0cm) FS (%) 31.8 %SV56.0 ml LVEF(%)59.9 (>50%) Aortic Valve AoV Peak Jose.134.4cm/sAoV VTI29.3cm AO Peak GR.7.2mmHgLVOT Peak Jose.100.5cm/s LVOT VTI 20.10cmAO Mean GR.4mmHg NALDO (VMAX)2.49un6OHM (VTI)2.35cm2 Mitral Valve MV E Gorzdbxm45.7cm/sMV DECEL SOYX018tj MV A Ubmoruri14.9cm/sMV E Mean Gr.1mmHg MV VZK79ozP/A Ratio0.9 MVA (PHT)3.37cm2 TDI E/Lateral E'6.3E/Medial E'7.1 Pulmonary Valve PV Peak Uzyafkwo58.1cm/sPV Peak Grad.3mmHg Tricuspid Valve TR P. Dkjxvdvm193on/sRAP ALFHHVDT3gvBt TR Peak Gr.37koXkOMKB91chDn Pulmonary Vein S1 Hphknajv23.3cm/sD2 Tbrbfosw96.6cm/s PVa [id number] LEFT VENTRICLE The left ventricle is normal size. There is normal left ventricular wall thickness. The left ventricu lar systolic function is normal and the ejection fraction is within normal range. The Ejection Fracti on is 55-60%. There is normal LV segmental wall motion. Transmitral Doppler flow pattern is Grade I-a bnormal relaxation pattern. RIGHT VENTRICLE The right ventricle is normal size. There is normal right ventricular wall thickness. The right ventr icular systolic function is normal. ATRIA The left atrium size is normal. The right atrium size is normal. The interatrial septum is intact wit h no evidence for an atrial septal defect or patent foramen ovale as noted on 2-D or Doppler imaging. AORTIC VALVE The aortic valve is normal in structure and function. Doppler and Color Flow revealed trace aortic re gurgitation. There is no significant aortic valvular stenosis. Calculated aortic valve area is 2.62 c m2 with maximum pressure gradient of 7 mmHg and mean pressure gradient of 4 mmHg. MITRAL VALVE The mitral valve is normal in structure and function. There is no evidence of mitral valve prolapse. There is no mitral valve stenosis. Doppler and Color-flow revealed trace mitral regurgitation. TRICUSPID VALVE The tricuspid valve is normal in structure and function. Doppler and Color Flow revealed trace tricus pid regurgitation with an estimated PAP of 28 mmHg. There is no tricuspid valve stenosis. PULMONIC VALVE The pulmonic valve is not well visualized. Doppler and Color Flow revealed trace to mild pulmonic joanna vular regurgitation. There is no pulmonic valvular stenosis. GREAT VESSELS The aortic root is normal in size. The ascending aorta is normal in size. The IVC is normal in size a nd collapses >50% with inspiration. PERICARDIAL EFFUSION There is no evidence of significant pericardial effusion. Critical Notification Critical Value: No <Conclusion> The left ventricular systolic function is normal and the ejection fraction is within normal range. Th e Ejection Fraction is 55-60%. There is normal LV segmental wall motion. Signed by : Steven Parrish, Electronically Approved : 12/18/2020 14:17:06
== END ==
LOC: ECHO 09:44
PROVIDERS: ATTEND Internal Medicine Cardiovascular Disease
DX: I37.1 Nonrheumatic pulmonary valve insufficiency (principal); I10 Essential (primary) hypertension
CPT/HCPCS: 93306; 93975